=== PATIENT | male | born 1990 | race Caucasian/White ===

== ENCOUNTER 2024-06-04 04:14 | Emergency (ER) | payer OTHER ==
[~2024-06-04] VITALS: Ht 180.3 cm; Wt 74.8 kg
[2024-06-04 05:41] VITALS: BP 132/78; TEMP 98.2; O2SAT 99
== END 2024-06-04 05:41 | disposition home or self-care (01) ==
LOC: ER 04:26
DX: M54.2 Cervicalgia (principal); Y08.89XA Assault by other specified means, initial encounter; Y93.89 Activity, other specified; Y92.89 Other specified places as the place of occurrence of the external cause; Y99.8 Other external cause status